=== PATIENT | female | born 1985 | race Caucasian/White ===

== ENCOUNTER → 2020-04-10 16:27 | Outpatient (CLI) | payer MEDICAID, SELFPAY ==
[2020-04-10 14:49] VITALS: BMI 38.0
[2020-04-15 03:06] LABS: Chlamydia By Nucleic Acid AMP Negative (Negative)
[2020-04-15 09:43] LABS: Gonococcus By Nucleic Acid AMP Negative (Negative)
[2020-04-15 15:58] LABS: HPV APTIMA, High Risk Negative (Negative)
== END ==
PROVIDERS: PCP Family Medicine; Referring Provider Obstetrics & Gynecology; Visit Provider Obstetrics & Gynecology
DX: Z12.4 Encounter for screening for malignant neoplasm of cervix (principal); O09.90 Supervision of high risk pregnancy, unspecified, unspecified trimester; Z3A.00 Weeks of gestation of pregnancy not specified
CPT/HCPCS: 87491; 87591; 87624; 88175; G0145

== ENCOUNTER → 2020-04-16 10:37 | Outpatient (CLI) | payer MEDICAID, SELFPAY ==
[2020-04-10 14:49] VITALS: BMI 38.0
[2020-04-16 11:35] LABS: Absolute Lymphocyte Count 2.01 X10^3/uL (0.83-4.51); Absolute Neutrophil Count 6.6 X10^3/uL (2.0-7.7); Basophil# 0.02 X10^3/uL; Basophil% 0.2 % (0-1); Eosinophil# 0.25 X10^3/uL; Eosinophils% 2.7 % (0-5); Hematocrit 35.2 % (37-47); Hemoglobin 11.6 g/dL (12.0-15.0); Lymphocyte # 2.01 X10^3/ul (4.0); Lymphocyte % 21.4 % (19-41); Mean Corpuscular Hgb 25.4 pg (27.0-32.0); Mean Platelet Vol. 10.6 fl (6.2-12.0); Monocyte# 0.46 X10^3/uL; Monocyte% 4.9 % (0-10); NRBC Flagged by Analyzer 0 % (0-5); Neutrophil # 6.62 X10^3/uL (2.7-7.7); Neutrophil % 70.4 % (47-70); Platelet Count 286 K/mm3 (150-450); RBC Distribution Width SD 49.1 fl (35.1-43.9); Red Blood Count 4.57 M/mm3 (4.2-5.4); White Blood Count 9.4 K/mm3 (4.4-11.0)
[2020-04-16 11:47] LABS: Glucose Challenge Gest 1H 50g 139 mg/dL (70-140)
[2020-04-16 12:37] LABS: HIV - WCH Non-Reactive (Nonreactive); Hepatitis B Surface Antigen Non-Reactive (Nonreactive); Hepatitis C Antibody Non-Reactive (Nonreactive); Rubella IgG 57.3 IU/mL
[2020-04-17 04:31] LABS: Rapid Plasmin Reagin (RPR) NONREACTIVE (NONREACTIVE)
== END ==
PROVIDERS: PCP Family Medicine; Referring Provider Obstetrics & Gynecology; Visit Provider Obstetrics & Gynecology
DX: Z34.81 Encounter for supervision of other normal pregnancy, first trimester (principal); Z31.5 Encounter for procreative genetic counseling
CPT/HCPCS: 36415; 82950; 85025; 86592; 86703; 86762; 86803; 86850; 86900; 86901; 87340

== ENCOUNTER → 2020-04-18 06:38 | Outpatient (CLI) | payer MEDICAID, SELFPAY ==
[2020-04-10 14:49] VITALS: BMI 38.0
[2020-04-18 08:16] LABS: Glucose GTT-Gestation. Fasting 96 mg/dL (<105)
[2020-04-18 09:13] LABS: Glucose GTT-Gestational 1 Hr 155 mg/dL (<190)
[2020-04-18 09:54] LABS: Glucose GTT-Gestational 2 Hr 103 mg/dL (<165)
[2020-04-18 11:03] LABS: Glucose GTT-Gestational 3 Hr 54 L (<145)
== END ==
PROVIDERS: Obstetrics & Gynecology; PCP Family Medicine; Referring Provider Obstetrics & Gynecology; Visit Provider Obstetrics & Gynecology
DX: O99.810 Abnormal glucose complicating pregnancy (principal); Z3A.00 Weeks of gestation of pregnancy not specified
CPT/HCPCS: 36415; 82951; 82952

== ENCOUNTER → 2020-05-09 13:12 | Outpatient (CLI) | payer MEDICAID, SELFPAY ==
[2020-05-09 09:52] VITALS: BMI 38.0
[2020-05-09 14:17] LABS: Amphetamine Urine VISTA NEGATIVE (<1000 ng/mL); Barbiturate Urine VISTA NEGATIVE (< 200 ng/mL); Benzodiazepine Urine VISTA NEGATIVE (< 200 ng/mL); Cocaine Urine VISTA NEGATIVE (< 300 ng/mL); Ecstacy Urine VISTA NEGATIVE (< 500 ng/mL); Methadone Urine VISTA NEGATIVE (< 300 ng/mL); PCP Urine VISTA NEGATIVE (< 25 ng/mL); THC Urine VISTA NEGATIVE (< 50 ng/mL); Vista UDS pH Range 6
== END ==
PROVIDERS: PCP Family Medicine; Referring Provider Obstetrics & Gynecology; Visit Provider Obstetrics & Gynecology
DX: O09.90 Supervision of high risk pregnancy, unspecified, unspecified trimester (principal); Z3A.00 Weeks of gestation of pregnancy not specified
CPT/HCPCS: 80307; 87086; 87088

== ENCOUNTER → 2020-08-07 08:22 | Outpatient (CLI) | payer MEDICAID, SELFPAY ==
[2020-07-29 09:44] VITALS: BMI 51.6
[2020-08-07 09:07] LABS: Absolute Lymphocyte Count 1.34 X10^3/uL (0.83-4.51); Absolute Neutrophil Count 6.9 X10^3/uL (2.0-7.7); Basophil# 0.01 X10^3/uL; Basophil% 0.1 % (0-1); Eosinophils% 2.2 % (0-5); Hematocrit 29.2 % (37-47); Hemoglobin 9.6 g/dL (12.0-15.0); Lymphocyte # 1.34 X10^3/ul (4.0); Lymphocyte % 14.8 % (19-41); Mean Corp Hgb Conc 32.9 g/dL (32-36); Mean Corpuscular Hgb 25.3 pg (27.0-32.0); Mean Corpuscular Volume 76.8 fL (81-99); Mean Platelet Vol. 9.8 fl (6.2-12.0); Monocyte# 0.64 X10^3/uL; NRBC Flagged by Analyzer 0 % (0-5); Neutrophil # 6.85 X10^3/uL (2.7-7.7); Neutrophil % 75.5 % (47-70); Platelet Count 250 K/mm3 (150-450); RBC Distribution Width CV 15.3 % (11.6-14.6); RBC Distribution Width SD 42.4 fl (35.1-43.9); White Blood Count 9.1 K/mm3 (4.4-11.0)
[2020-08-07 09:16] LABS: Glucose Challenge Gest 1H 50g 155 mg/dL (70-140)
== END ==
PROVIDERS: PCP Family Medicine; Referring Provider Nurse Practitioner Women's Health; Visit Provider Nurse Practitioner Women's Health
DX: Z13.1 Encounter for screening for diabetes mellitus (principal); O09.90 Supervision of high risk pregnancy, unspecified, unspecified trimester
CPT/HCPCS: 36415; 82950; 85025

== ENCOUNTER → 2020-08-12 09:36 | Outpatient (CLI) | payer MEDICAID, SELFPAY ==
[2020-07-29 09:44] VITALS: BMI 51.6
[2020-08-12 10:37] LABS: Glucose GTT-Gestation. Fasting 94 mg/dL (<105)
[2020-08-12 11:32] LABS: Glucose GTT-Gestational 1 Hr 167 mg/dL (<190)
[2020-08-12 13:02] LABS: Glucose GTT-Gestational 2 Hr 128 mg/dL (<165)
[2020-08-12 13:52] LABS: Glucose GTT-Gestational 3 Hr 56 L (<145)
== END ==
PROVIDERS: Obstetrics & Gynecology; PCP Family Medicine; Visit Provider Obstetrics & Gynecology
DX: O99.810 Abnormal glucose complicating pregnancy (principal); Z3A.00 Weeks of gestation of pregnancy not specified
CPT/HCPCS: 36415; 82951; 82952

== ENCOUNTER → 2020-09-12 10:47 | Outpatient (CLI) | payer MEDICAID, SELFPAY ==
[2020-09-12 09:37] VITALS: BMI 52.8
[2020-09-12 10:59] LABS: Absolute Lymphocyte Count 1.76 X10^3/uL (0.83-4.51); Absolute Neutrophil Count 9.9 X10^3/uL (2.0-7.7); Basophil# 0.02 X10^3/uL; Basophil% 0.2 % (0-1); Eosinophil# 0.21 X10^3/uL; Eosinophils% 1.7 % (0-5); Hematocrit 30.7 % (37-47); Hemoglobin 9.7 g/dL (12.0-15.0); Lymphocyte # 1.76 X10^3/ul (4.0); Lymphocyte % 13.9 % (19-41); Mean Corp Hgb Conc 31.6 g/dL (32-36); Mean Corpuscular Hgb 24.1 pg (27.0-32.0); Mean Corpuscular Volume 76.4 fL (81-99); Mean Platelet Vol. 9.6 fl (6.2-12.0); Monocyte# 0.72 X10^3/uL; Monocyte% 5.7 % (0-10); NRBC Flagged by Analyzer 0 % (0-5); Neutrophil # 9.86 X10^3/uL (2.7-7.7); Neutrophil % 77.9 % (47-70); Platelet Count 273 K/mm3 (150-450); RBC Distribution Width CV 15.7 % (11.6-14.6); RBC Distribution Width SD 42.8 fl (35.1-43.9); Red Blood Count 4.02 M/mm3 (4.2-5.4); White Blood Count 12.6 K/mm3 (4.4-11.0)
== END ==
PROVIDERS: Obstetrics & Gynecology; PCP Family Medicine; Referring Provider Obstetrics & Gynecology; Visit Provider Obstetrics & Gynecology
DX: O99.019 Anemia complicating pregnancy, unspecified trimester (principal); Z3A.00 Weeks of gestation of pregnancy not specified
CPT/HCPCS: 36415; 85025

== ENCOUNTER → 2020-09-15 07:39 | Outpatient (CLI) | payer MEDICAID, SELFPAY ==
[2020-09-12 09:37] VITALS: BMI 52.8
--- NOTE | 2020-09-15 07:41 | US_ITS ---
STUDY: SECOND AND THIRD TRIMESTER OBSTETRICAL ULTRASOUND REASON FOR EXAM: Female, 35 years old growth LMP: 01/28/2020 TECHNIQUE: Transabdominal. TECHNICAL QUALITY: Limited. Examination limited due to obesity. PRIOR ULTRASOUND: None. FINDINGS: There is a single intrauterine fetus. The fetus is in a cephalic presentation. There is demonstrated cardiac activity with a heart rate of 144 bpm. There is a normal amniotic fluid volume. The largest amniotic fluid pocket measures 6.4 cm. The amniotic fluid index (ARRON) is 16.7 cm. The placenta is anterior in location and is not low lying. There are Grade 2 placental changes. The cervix measures 3.7 cm in length. The adnexal regions are not visualized. BIOMETRY: BPD: 9.06 cm: 36 weeks, 5 days HC: 31.94 cm: 35 weeks, 6 days AC: 30.22 cm: 34 weeks, 1 days FL: 6.4 cm: 33 weeks, 0 days CI: 85% FL/BPD: 71% FL/HC: FL/AC: 21% HC/AC: 1.06 age by current US: 34 weeks, 4 days. PREMA by current US: 10/23/2020. Estimated weight: 2422 grams, +/- 363 grams, 91 %. Age by LMP: 33 weeks, 0 days. PREMA by LMP: 11/03/2020. ANATOMY: Limited exam to visualize the anatomical markers. US/OB Limited With Biometrics IMPRESSION: Single live uterine gestation with a mean gestational age of 34 weeks and 4 days. Electronically Signed: Gamal Madera MD at 10:54 EST , Service support ,
== END ==
PROVIDERS: PCP Family Medicine; Referring Provider Obstetrics & Gynecology; Visit Provider Obstetrics & Gynecology
DX: O09.90 Supervision of high risk pregnancy, unspecified, unspecified trimester (principal); Z3A.34 34 weeks gestation of pregnancy; O99.213 Obesity complicating pregnancy, third trimester
CPT/HCPCS: 76816

== ENCOUNTER 2020-10-03 09:14 | Outpatient (CLI) | payer MEDICAID, SELFPAY ==
[2020-10-03 08:28] VITALS: BMI 52.9
[2020-10-03 10:17] LABS: ALB/GLOB Ratio 0.5 RATIO (0.9-2.4); AST(SGOT) 46 U/L (15-37); Alanine Aminotransfer ALT/SGPT 104 U/L (13-56); Albumin, Serum 2.2 g/dL (3.2-5.0); Alkaline Phosphatase 294 U/L (45-117); Anion Gap 7 (5-15); BUN 5 mg/dL (7-18); Calcium,Total 9.5 mg/dL (8.5-10.1); Chloride 103 mmol/L (98-107); Creatinine, Serum 0.62 mg/dL (0.55-1.02); EST Glomerular Filtration Rate 116 mL/min (>60); Est Glom Filt Rate - Afr Amer 140 mL/min (>60); Globulin 4.4 g/dL (2.2-4.2); Glucose 100 mg/dL (74-106); Potassium 3.6 mmol/L (3.5-5.1); Protein, Total 6.6 g/dL (6.4-8.2); Sodium Level 137 mmol/L (136-145)
[2020-10-03 11:50] VITALS: BMI 52.9
[2020-10-03 12:03] VITALS: BP 133/69; PULSE 107; TEMP 36.7; O2SAT 97
--- NOTE | 2020-10-03 12:22 | US_ITS ---
STUDY: OBSTETRICAL ULTRASOUND - BIOPHYSICAL PROFILE REASON FOR EXAM: Female, 35 years old. Elevated liver enzymes LMP: Unknown. PRIOR ULTRASOUND: None. TECHNIQUE: Transabdominal ultrasound evaluation was performed. FINDINGS: There is a single intrauterine fetus. The fetus is in a cephalic presentation. There is demonstrated cardiac activity with a heart rate of 161 bpm. There is a normal amniotic fluid volume. The amniotic fluid index (ARRON) is 15.7 cm. The placenta is anterior in location and is not low lying. BIOPHYSICAL PROFILE: Breathing Movements (FBM): 2 Gross Body Movements (GBM): 2 Tone (FT): 2 Amniotic Fluid Volume (AFV): 2 TOTAL SCORE: US/Biophysical Prof W/O Non Stres IMPRESSION: Normal biophysical profile of 03/08. Electronically Signed: Victor Manuel Solares MD at 16:34 EST Tel , Service support ,
[2020-10-03 12:26] LABS: Absolute Lymphocyte Count 1.54 X10^3/uL (0.83-4.51); Absolute Neutrophil Count 8.8 X10^3/uL (2.0-7.7); Basophil# 0.01 X10^3/uL; Basophil% 0.1 % (0-1); Eosinophil# 0.28 X10^3/uL; Eosinophils% 2.5 % (0-5); Hematocrit 28.4 % (37-47); Hemoglobin 9.5 g/dL (12.0-15.0); Lymphocyte # 1.54 X10^3/ul (4.0); Lymphocyte % 13.6 % (19-41); Mean Corp Hgb Conc 33.5 g/dL (32-36); Mean Corpuscular Hgb 25.7 pg (27.0-32.0); Mean Corpuscular Volume 76.8 fL (81-99); Mean Platelet Vol. 9.9 fl (6.2-12.0); Monocyte# 0.57 X10^3/uL; NRBC Flagged by Analyzer 0 % (0-5); Neutrophil # 8.84 X10^3/uL (2.7-7.7); Neutrophil % 78.2 % (47-70); Platelet Count 226 K/mm3 (150-450); RBC Distribution Width CV 16.2 % (11.6-14.6); RBC Distribution Width SD 43.8 fl (35.1-43.9); White Blood Count 11.3 K/mm3 (4.4-11.0)
--- NOTE | 2020-10-03 12:27 | US_ITS ---
STUDY: SECOND AND THIRD TRIMESTER OBSTETRICAL ULTRASOUND - LIMITED REASON FOR EXAM: Female, 35 years old elevated liver enzymes LMP: 01/28/2020. PRIOR ULTRASOUND: Comparison is made with prior study dated 09/15/2020. TECHNIQUE: Transabdominal TECHNICAL QUALITY: Adequate. FINDINGS: There is a single intrauterine fetus. The fetus is in a cephalic presentation. There is demonstrated cardiac activity with a heart rate of 140 bpm. There is a normal amniotic fluid volume. The largest amniotic fluid pocket measures 5.2 cm. The amniotic fluid index (ARRON) is 13.8 cm. The placenta is anterior in location and is not low lying. There are Grade 2 placental changes. The cervix was not measured due to the head positioning. BIOMETRY: BPD: 9.7 cm: 39 weeks, 5 days HC: 34.1 cm: 39 weeks, 2 days AC: 32.9 cm: 36 weeks, 6 days FL: 7.1 cm: 36 weeks, 4 days Age by LMP: 35 weeks, 4 days. PREMA by LMP: 11/03/2020. age by prior US: 37 weeks, 1 days. PREMA by prior US: 10/23/2020. age by current US: 38 weeks, 1 days. PREMA by current US: 10/16/2020. Estimated weight: 3171 grams, +/- 463 grams, 90 percentile. US/OB Limited With Biometrics IMPRESSION: Single live intrauterine gestation with mean gestational age of 37 weeks and 1 day. The measurements obtained today fall within the normal expected range. Electronically Signed: Gamal Madera MD at 14:39 EST , Service support ,
[2020-10-03 12:30] VITALS: BP 130/73; PULSE 110
[2020-10-03 12:50] VITALS: BP 140/79; PULSE 111
[2020-10-03 12:57] LABS: Protein, Urine (Random) 9.7 mg/dL (<11.9); Protein:Creat Ratio 180 mg/g CRE (0-200)
[2020-10-03 13:03] VITALS: BP 144/79; PULSE 105
[2020-10-03 14:24] VITALS: BP 136/75; PULSE 112
[2020-10-03] MEDS: Betamethasone/Betamethasone 30 MG/5 ML Vial 12 MG IM (14:26)
--- NOTE | 2020-10-05 01:05 | OB.TRI.PN ---
Progress Notes Date of Service: 10/03/20 Progress Note: Patient presents for triage evaluation secondary to elevated liver enzymes and pruritus suspected cholestasis FHT: 140 Moderate variability reactive no decelerations category I tracing Potter: no regular Contractions Assessment and plan: Cholestasis of . Preeclampsia panel sent and BPP done for additional assessment due to cholestasis diagnosis and elevated liver enzymes. Reactive NST- already done in office today also, reassuring maternal and status patient discharged to home to follow-up twice next week for BPPs. See problem list details for additional plan information. Laboratory Studies: Laboratory Tests 10/03/20 10/03/20 10/03/20 Range/Units 12:35 12:17 09:19 WBC 11.3 H (4.4-11.0) K/mm3 RBC 3.70 L (4.2-5.4) M/mm3 Hgb 9.5 L (12.0-15.0) g/dL Hct 28.4 L (37-47) % MCV 76.8 L (81-99) fL MCH 25.7 L (27.0-32.0) pg MCHC 33.5 (32-36) g/dL RDW Std Deviation 43.8 (35.1-43.9) fl RDW Coeff of Rashaun 16.2 H (11.6-14.6) % Plt Count 226 (150-450) K/mm3 MPV 9.9 (6.2-12.0) fl Immature Gran % (Auto) 0.600 (0.0-0.9) % Neut % (Auto) 78.2 H (47-70) % Lymph % (Auto) 13.6 L (19-41) % [place] % (Auto) 5.0 (0-10) % Eos % (Auto) 2.5 (0-5) % Baso % (Auto) 0.1 (0-1) % Absolute Neuts (auto) 8.8 H (2.0-7.7) X10^3/uL Absolute Lymphs (auto) 1.54 (0.83-4.51) X10^3/uL Nucleated RBC % 0 (0-5) % Sodium (136-145) mmol/L Potassium (3.5-5.1) mmol/L Chloride (98-107) mmol/L Carbon Dioxide (21.0-32.0) mmol/L Anion Gap (5-15) BUN (7-18) mg/dL Creatinine (0.55-1.02) mg/dL Est GFR (MDRD) Af Amer (>60) mL/min Est GFR (MDRD) Non-Af (>60) mL/min BUN/Creatinine Ratio (10-20) RATIO Glucose (74-106) mg/dL Calcium (8.5-10.1) mg/dL Total Bilirubin (0.20-1.00) mg/dL AST (15-37) U/L ALT (13-56) U/L Alkaline Phosphatase (45-117) U/L Total Protein (6.4-8.2) g/dL Albumin (3.2-5.0) g/dL Globulin (2.2-4.2) g/dL Albumin/Globulin Ratio (0.9-2.4) RATIO U Random Total Protein 9.7 (<11.9) mg/dL Urine Creatinine 53.90 (NO RANGE EST.) mg/dL Protein/Creatinin Ratio 180 (0-200) mg/g CRE Miscellaneous Test 10/03/20 Range/Units 09:19 WBC (4.4-11.0) K/mm3 RBC (4.2-5.4) M/mm3 Hgb (12.0-15.0) g/dL Hct (37-47) % MCV (81-99) fL MCH (27.0-32.0) pg MCHC (32-36) g/dL RDW Std Deviation (35.1-43.9) fl RDW Coeff of Rashaun (11.6-14.6) % Plt Count (150-450) K/mm3 MPV (6.2-12.0) fl Immature Gran % (Auto) (0.0-0.9) % Neut % (Auto) (47-70) % Lymph % (Auto) (19-41) % [place] % (Auto) (0-10) % Eos % (Auto) (0-5) % Baso % (Auto) (0-1) % Absolute Neuts (auto) (2.0-7.7) X10^3/uL Absolute Lymphs (auto) (0.83-4.51) X10^3/uL Nucleated RBC % (0-5) % Sodium 137 (136-145) mmol/L Potassium 3.6 (3.5-5.1) mmol/L Chloride 103 (98-107) mmol/L Carbon Dioxide 27.0 (21.0-32.0) mmol/L Anion Gap 7 (5-15) BUN 5 L (7-18) mg/dL Creatinine 0.62 (0.55-1.02) mg/dL Est GFR (MDRD) Af Amer 140 (>60) mL/min Est GFR (MDRD) Non-Af 116 (>60) mL/min BUN/Creatinine Ratio 8.0 L (10-20) RATIO Glucose 100 (74-106) mg/dL Calcium 9.5 (8.5-10.1) mg/dL Total Bilirubin 0.50 (0.20-1.00) mg/dL AST 46 H (15-37) U/L ALT 104 H (13-56) U/L Alkaline Phosphatase 294 H (45-117) U/L Total Protein 6.6 (6.4-8.2) g/dL Albumin 2.2 L (3.2-5.0) g/dL Globulin 4.4 H (2.2-4.2) g/dL Albumin/Globulin Ratio 0.5 L (0.9-2.4) RATIO U Random Total Protein (<11.9) mg/dL Urine Creatinine (NO RANGE EST.) mg/dL Protein/Creatinin Ratio (0-200) mg/g CRE Miscellaneous Test Multi Select Codes - Urinary/Genital Urinary/Genital CPT Codes: No Charge
== END 2020-10-03 14:42 | disposition home or self-care (01) ==
LOC: PAVLAB 11:42 → WPOUT 11:46 → WP 11:47
PROVIDERS: PCP Family Medicine; Referring Provider Obstetrics & Gynecology; Visit Provider Obstetrics & Gynecology
DX: O26.613 Liver and biliary tract disorders in pregnancy, third trimester (principal); R74.8 Abnormal levels of other serum enzymes; K83.1 Obstruction of bile duct; Z3A.37 37 weeks gestation of pregnancy
CPT/HCPCS: 36415; 59025; 59050; 76816; 76819; 80053; 82570; 84156; 85025; 99218; G0378; J0702

== ENCOUNTER 2020-10-04 14:25 | Outpatient (CLI) | payer MEDICAID, SELFPAY ==
[2020-10-03 11:50] VITALS: BMI 52.9
[2020-10-04] MEDS: Betamethasone/Betamethasone 30 MG/5 ML Vial 12 MG IM (14:40)
--- NOTE | 2020-10-05 01:04 | OB.TRI.PN ---
Progress Notes Date of Service: 10/04/20 Progress Note: celestone given for prematurity and cholestasis
== END 2020-10-04 14:45 | disposition home or self-care (01) ==
LOC: WPOUT 14:30 → WP 14:30
PROVIDERS: PCP Family Medicine; Referring Provider Obstetrics & Gynecology; Visit Provider Obstetrics & Gynecology
DX: O26.619 Liver and biliary tract disorders in pregnancy, unspecified trimester (principal); K83.1 Obstruction of bile duct; Z3A.00 Weeks of gestation of pregnancy not specified; O60.00 Preterm labor without delivery, unspecified trimester
CPT/HCPCS: 96372; 99218; G0378; J0702

== ENCOUNTER → 2020-10-07 13:51 | Outpatient (CLI) | payer MEDICAID, SELFPAY ==
[2020-10-03 11:50] VITALS: BMI 52.9
--- NOTE | 2020-10-07 13:52 | US_ITS ---
STUDY: OBSTETRICAL ULTRASOUND - BIOPHYSICAL PROFILE REASON FOR EXAM: Female, 35 years old. The overall well-being. LMP: Unknown. PRIOR ULTRASOUND: 10/03/20 TECHNIQUE: Transabdominal ultrasound evaluation was performed. FINDINGS: There is a single intrauterine fetus. The fetus is in a cephalic presentation. There is demonstrated cardiac activity with a heart rate of 157 bpm. There is a normal amniotic fluid volume. The amniotic fluid index (ARRON) is 16.1 cm. The placenta is anterior in location and is not low lying. BIOPHYSICAL PROFILE: Breathing Movements (FBM): 2 Gross Body Movements (GBM): 2 Tone (FT): 2 Amniotic Fluid Volume (AFV): 2 TOTAL SCORE: US/Biophysical Prof W/O Non Stres IMPRESSION: Normal biophysical profile of 03/08. Electronically Signed: Victor Manuel Solares MD at 17:13 EST Tel , Service support ,
== END ==
PROVIDERS: PCP Family Medicine; Referring Provider Obstetrics & Gynecology; Visit Provider Obstetrics & Gynecology
DX: O26.619 Liver and biliary tract disorders in pregnancy, unspecified trimester (principal); K83.1 Obstruction of bile duct; Z3A.00 Weeks of gestation of pregnancy not specified
CPT/HCPCS: 76819

== ENCOUNTER → 2020-10-08 09:30 | Outpatient (CLI) | payer MEDICAID, SELFPAY ==
[2020-10-03 11:50] VITALS: BMI 52.9
[2020-10-08 09:59] LABS: Absolute Lymphocyte Count 1.89 X10^3/uL (0.83-4.51); Absolute Neutrophil Count 11.5 X10^3/uL (2.0-7.7); Basophil# 0.03 X10^3/uL; Basophil% 0.2 % (0-1); Eosinophil# 0.29 X10^3/uL; Hemoglobin 9.8 g/dL (12.0-15.0); Lymphocyte # 1.89 X10^3/ul (4.0); Mean Corp Hgb Conc 31.6 g/dL (32-36); Mean Corpuscular Hgb 23.8 pg (27.0-32.0); Mean Corpuscular Volume 75.4 fL (81-99); Mean Platelet Vol. 10.2 fl (6.2-12.0); Monocyte# 0.76 X10^3/uL; Monocyte% 5.2 % (0-10); NRBC Flagged by Analyzer 0 % (0-5); Neutrophil % 78.8 % (47-70); Platelet Count 328 K/mm3 (150-450); RBC Distribution Width CV 15.8 % (11.6-14.6); RBC Distribution Width SD 42.9 fl (35.1-43.9); Red Blood Count 4.11 M/mm3 (4.2-5.4); White Blood Count 14.6 K/mm3 (4.4-11.0)
[2020-10-08 10:06] LABS: Protein, Urine (Random) < 6.0 mg/dL (<11.9); Protein:Creat Ratio 255 mg/g CRE (0-200)
[2020-10-08 10:16] LABS: ALB/GLOB Ratio 0.6 RATIO (0.9-2.4); AST(SGOT) 28 U/L (15-37); Alanine Aminotransfer ALT/SGPT 98 U/L (13-56); Albumin, Serum 2.4 g/dL (3.2-5.0); Alkaline Phosphatase 242 U/L (45-117); Anion Gap 9 (5-15); BUN 5 mg/dL (7-18); BUN/Creat Ratio 7.6 RATIO (10-20); Calcium,Total 9.7 mg/dL (8.5-10.1); Chloride 102 mmol/L (98-107); Creatinine, Serum 0.66 mg/dL (0.55-1.02); EST Glomerular Filtration Rate 109 mL/min (>60); Est Glom Filt Rate - Afr Amer 132 mL/min (>60); GGTP 9 U/L (5-55); Globulin 4.3 g/dL (2.2-4.2); Glucose 107 mg/dL (74-106); Potassium 3.6 mmol/L (3.5-5.1); Protein, Total 6.7 g/dL (6.4-8.2); Sodium Level 138 mmol/L (136-145)
[2020-10-08 10:21] LABS: Internal QC Validated? YES +Cl - CLEAR BKGD; Monotest Negative (Negative)
[2020-10-09 09:49] LABS: Toxoplasma Gondii IgG < 3.0 IU/mL (0.0-7.1)
[2020-10-11 09:36] LABS: HEPATITIS B SURFACE AG Negative (Negative); HSV 1 By PCR Negative (Negative); Hepatitis A IgM Antibody Negative (Negative); Hepatitis B Core AB IgM Negative (Negative)
[2020-10-11 09:52] LABS: CMV Acute Antibody IgM < 30.0 AU/mL (0.0-29.9); CMV Antibody IgG < 0.60 U/mL (0.00-0.59); HSV 2 By PCR Negative (Negative); HSV 2 IgG < 0.91 index (0.00-0.90); Hep C Antibodies <0.1 s/co ratio (0.0-0.9); PARVOVIRUS B19 IGG 6.4 index (0.0-0.8); PARVOVIRUS B19 IGM 0.5 index (0.0-0.8); Toxoplasma Gondii IgM < 3.0 AU/mL (0.0-7.9)
== END ==
PROVIDERS: PCP Family Medicine; Referring Provider Obstetrics & Gynecology; Visit Provider Obstetrics & Gynecology
DX: R74.8 Abnormal levels of other serum enzymes (principal); L29.9 Pruritus, unspecified
CPT/HCPCS: 36415; 80053; 80074; 82570; 82977; 84156; 85025; 86308; 86644; 86645; 86695; 86696; 86747; 86777; 86778; 87529

== ENCOUNTER → 2020-10-10 10:23 | Outpatient (CLI) | payer MEDICAID, SELFPAY ==
[2020-10-03 11:50] VITALS: BMI 52.9
--- NOTE | 2020-10-10 10:25 | US_ITS ---
STUDY: OBSTETRICAL ULTRASOUND - BIOPHYSICAL PROFILE REASON FOR EXAM: Female, 35 years old BPP PRIOR ULTRASOUND: None. TECHNIQUE: Transabdominal TECHNICAL QUALITY: Adequate. FINDINGS: There is a single intrauterine fetus. The fetus is in a cephalic presentation. There is demonstrated cardiac activity with a heart rate of 164 bpm. There is a normal amniotic fluid volume. The largest amniotic fluid pocket measures 5.4 cm. The amniotic fluid index (ARRON) is 11 cm. The placenta is anterior in location and is not low lying. There are Grade 0 placental changes. Gender: Male BIOPHYSICAL PROFILE: Breathing Movements (FBM): 2 Gross Body Movements (GBM): 2 Tone (FT): 2 Amniotic Fluid Volume (AFV): 2 TOTAL SCORE: US/Biophysical Prof W/O Non Stres IMPRESSION: Normal biophysical profile of 03/08. Electronically Signed: Sandrine Tipton MD at 13:34 EST Tel , Service support ,
== END ==
PROVIDERS: PCP Family Medicine; Referring Provider Obstetrics & Gynecology; Visit Provider Obstetrics & Gynecology
DX: O09.90 Supervision of high risk pregnancy, unspecified, unspecified trimester (principal); O26.619 Liver and biliary tract disorders in pregnancy, unspecified trimester; K83.1 Obstruction of bile duct; Z3A.00 Weeks of gestation of pregnancy not specified
CPT/HCPCS: 76819; 87081

== ENCOUNTER → 2020-10-14 08:20 | Outpatient (CLI) | payer MEDICAID, SELFPAY ==
[2020-10-03 11:50] VITALS: BMI 52.9
--- NOTE | 2020-10-14 08:21 | US_ITS ---
STUDY: OBSTETRICAL ULTRASOUND - BIOPHYSICAL PROFILE REASON FOR EXAM: Female, 35 years old BPP - cholestasis LMP: 01/28/2020. PRIOR ULTRASOUND: Comparison is made with prior study from 10/10/2020. TECHNIQUE: Transabdominal TECHNICAL QUALITY: Adequate. FINDINGS: There is a single intrauterine fetus. The fetus is in a cephalic presentation. There is demonstrated cardiac activity with a heart rate of 140 bpm. There is a normal amniotic fluid volume. The largest amniotic fluid pocket measures 3.4 cm. The amniotic fluid index (ARRON) is 10.9 cm. The placenta is anterior in location and is not low lying. There are Grade 3 placental changes. BIOPHYSICAL PROFILE: Breathing Movements (FBM): 2 Gross Body Movements (GBM): 2 Tone (FT): 2 Amniotic Fluid Volume (AFV): 2 TOTAL SCORE: 8 / 8 US/Biophysical Prof W/O Non Stres IMPRESSION: Normal biophysical profile of 8/8. Electronically Signed: Gamal Madera MD at 15:42 EDT , Service support ,
== END ==
PROVIDERS: PCP Family Medicine; Referring Provider Obstetrics & Gynecology; Visit Provider Obstetrics & Gynecology
DX: O26.619 Liver and biliary tract disorders in pregnancy, unspecified trimester (principal); K83.1 Obstruction of bile duct; Z3A.00 Weeks of gestation of pregnancy not specified
CPT/HCPCS: 76819

== ENCOUNTER 2020-10-16 05:22 | Inpatient (IN) | payer MEDICAID, SELFPAY ==
[2020-09-12 09:37] VITALS: BMI 52.8
[2020-10-16] VITALS (20 sets, daily range): BP systolic 110–141; BP diastolic 62–87; PULSE 97–116; RESP 16–18; TEMP 36.1–36.5; O2SAT 94–99; BMI 52.7
[2020-10-16] MEDS: Lactated Ringers 1,000 ML 999 ML IV (05:45)
[2020-10-16 06:03] LABS: Absolute Lymphocyte Count 1.95 X10^3/uL (0.83-4.51); Absolute Neutrophil Count 10.5 X10^3/uL (2.0-7.7); Basophil# 0.03 X10^3/uL; Basophil% 0.2 % (0-1); Eosinophil# 0.31 X10^3/uL; Eosinophils% 2.2 % (0-5); Hematocrit 28.5 % (37-47); Hemoglobin 9.2 g/dL (12.0-15.0); Lymphocyte # 1.95 X10^3/ul (4.0); Lymphocyte % 14.1 % (19-41); Mean Corp Hgb Conc 32.3 g/dL (32-36); Mean Corpuscular Hgb 23.9 pg (27.0-32.0); Mean Platelet Vol. 10.6 fl (6.2-12.0); Monocyte# 0.88 X10^3/uL; Monocyte% 6.4 % (0-10); NRBC Flagged by Analyzer 0 % (0-5); Neutrophil # 10.52 X10^3/uL (2.7-7.7); Neutrophil % 76.3 % (47-70); Platelet Count 271 K/mm3 (150-450); RBC Distribution Width CV 15.9 % (11.6-14.6); RBC Distribution Width SD 42.2 fl (35.1-43.9); Red Blood Count 3.85 M/mm3 (4.2-5.4); White Blood Count 13.8 K/mm3 (4.4-11.0)
[2020-10-16] MEDS: Acetaminophen 500 MG Tablet 1000 MG PO ×3 (06:18→17:53)
[2020-10-16] MEDS: Lactated Ringers 1,000 ML 150 ML IV (06:52)
[2020-10-16] MEDS: Sodium Citrate/Citric Acid 30 ML UDC PO (07:13)
--- NOTE | 2020-10-16 07:31 | PCM.HPOB.BLA ---
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 Nl bile acids, but with elevated LFTs and significant symptom relief with ursodiol, plan delivery at 37w. (7) Elevated liver enzymes Status: Acute Comment: nl bile acids. additional labs ordered. (8) General counseling and advice for contraceptive management Status: Acute Comment: Wants BS if c section. Otherwise vasectomy (9) Generalized pruritus Status: Acute Comment: elevated CMP, nl bile acids, on actigall, reviewed FM precautions. (10) Influenza vaccination declined Status: Acute Comment: 06/03/20c (11) Obesity Status: Acute Qualifiers: Comment: 1 hour glucola 1 TM. encouraged healthy weight gain. 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 FOB- CARRIER FOR CYSTIC FIBROSIS, anatomy normal echo planned. nl growth (13) Previous section Status: Acute Comment: considering TOLAC. TOLAC calculator 32%. Would only want to TOLAC if came in advanced stages of labor. encouraged healthy weight gain. 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 Accompanied by: Allergies loperamide [From Imodium A-D] Allergy (Verified 10/10/20 09:24) Hives Medications multivitamin no.47-iron fum 27 mg-folate no.1 1 mg-dha 300 mg capsule 1 cap PO DAILY 04/10/20 [History Confirmed 10/10/20] ursodiol 500 mg tablet 500 mg PO BID #60 tab 10/03/20 [Rx Confirmed 10/10/20] Last Menstral Period: 02/04/20 Zika: Zika virus screening: Negative : No PFSH PFSH Medical History Obesity (Acute) Surgical History Previous section (Acute) History of ankle surgery (Acute) History of tonsillectomy (Acute) Family History Father Hypertension Mother Hypertension Thyroid disorder Blood clotting disorder Social History (Updated 10/10/20 @ 10:[address] Sheri Najera MD) adopted: No household members: family housing: house number of children: 1 current occupational status: unemployed pets and animals: No sexually active: Yes Smoking Status: Current every day smoker second hand exposure: Yes alcohol intake: current alcohol intake frequency: a few times a month substance use type: does not use seatbelt use: always do you feel safe at home: Yes additional social history: Rene- Loretta Clifton Pregancy History 2 Elective abortions Hx Para 1 Spontaneous abortions Hx # Term Pregnancies 1 Ectopic pregnancies Hx # Pregnancies Multiple births # of living children 1 Past Pregnancies Del. 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 Logan Delivery Date: 03/06/14 NRFHT Jacqueline Nixon HPI 36 WK OB/NST: Details: MOUSTAPHA GARCIAS is a 35 year old who presents for RLTCS and BS at 37 weeks due to cholestasis, elevated liver enzymes. OB Visit PREMA Calculator Estimated Delivery Date Method Current WG Current Estimate 11/03/20 Ultrasound #1 36w 4d Other Estimates 11/10/20 LMP (Certain) 35w 4d Expected Delivery Route/Plan RLTCS scheduled 10/27 - only wants to TOLAC if advanced cervical dilation patient counseled regarding risks/benefits of trial of labor versus repeat . ACOG/uptodate education given to patient. 32 % likelihood of success per calculator labor support person: Rene : yes PP control planned: BS if c section otherwise vasectomy Specific Issue/Plans flu vaccine: declined tdap vaccine: given rhogam: na LARC form signed: yes movement and labor precautions reviewed. Problem list reviewed and updated with the most current plan of care details and appropriate orders placed. Relevant counseling for the gestational age provided. Continue routine care and follow up unless otherwise noted in visit notes/problem list details Initial Weight: 348 lb Date EGA Weight BP Urine Prot Glucose FHR FuHt Pres Dilation Effaced St Visit Note 04/10/20 10w 3d 348 lb (+0 oz) 126/70 170 SM- CRL- SM- CRL- 3.1cm not consistent with LMP recommend changing PREMA to 11/03/20 05/09/20 14w 4d 352 lb (+4 lb) 128/70 150 SM- no vb cramping discussed lab results 06/03/20 18w 1d 355 lb (+7 lb) 104/80 Negative Negative 150 Sm- no vb cramping, has fu us with mfm next week 06/30/20 22w 0d 357 lb (+9 lb) 120/82 Negative Negative 160 SM- no vb cramping cramping 07/29/20 26w 1d 360 lb (+12 lb) 130/60 144 MH-unable to give urine spec. No VB, LOF. Good FM. Very difficult visualization of FHT with US and Dr Najera. Audible and 144. Patient/FOB heard it. Needs to schedule FU US with MFM. 08/29/20 30w 4d 371 lb (+23 lb) 129/85 145 SM- no vb lof good fm no regular ctx tdap 09/12/20 32w 4d 368 lb (+20 lb) 134/72 Negative Negative 140 SM- nst. no vb lof good fm no reuglar ctx 09/19/20 33w 4d 369 lb 6 oz (+21 lb 6 oz) 138/72 Negative Negative 140 GP - no LOF, VB, DFM, ctx. Discussed TOLAC calculator - planning RCD unless presents in advanced stage of labor. T19 signed today. 09/26/20 34w 4d 366 lb (+18 lb) 140/82 Negative Negative 140 SM- discussed tolac, only recommend if in well established spontaneous labor. 10/03/20 35w 4d 369 lb (+21 lb) 138/74 Negative Negative 140 SM- no vb lof good fm no regular ctx 10/10/20 36w 4d 367 lb 4 oz (+19 lb 4 oz) 118/70 150 37 GP - no LOF, VB, DFM, ctx. Significant relief in symptoms with actigall, but bile acids normal. LFTs still elevated. Awaiting infectious serologies. Concerned could have chloestasis that has not yet resulted in significant increase in bile acids. Will still plan for RCD at 37w. ACOG First Trimester First Trimester: Desire for , Alcohol, Tobacco Cessation, Illicit/Recreational Drug/Substance Use, Intimate Partner Violence, Barriers to care, Unstable Housing, Communication Barriers, Environmental/Work Hazards, Anticipated Course of Care, Toxoplasmosis Precations, Use of Any medications, Sexual activity, Exercise, Dental Care, Sauna/Hot tub use, Seat Belt use, Childbirth classes/Hospital facilities, , Travel, Indications for US and Screening for Aneuploidy Diagnostics Diagnostics Diagnostics Gest Glucose Tolerance MG/DL 08/12/20 Glucose 1 Hr 50 gm 155 mg/dL (70-140) H 08/07/20 Hgb 9.8 g/dL (12.0-15.0) L 10/08/20 Hct 31.0 % (37-47) L 10/08/20 Details: HIV: Urine Culture: Sequential Screen: NIPT Screen: ROS Const Reports system reviewed and no additional complaints, except as docu Eyes Reports system reviewed and no additional complaints, except as docu ENT Reports system reviewed and no additional complaints, except as docu Card Reports system reviewed and no additional complaints, except as docu Resp Reports system reviewed and no additional complaints, except as docu GI Reports system reviewed and no additional complaints, except as docu Reports system reviewed and no additional complaints, except as docu, Denies abnormal vaginal bleeding, Denies painful urination, Denies pelvic pain, Denies vaginal discharge, Denies vaginal odor, Denies vaginal itching Musc Reports system reviewed and no additional complaints, except [facility] Skin[facility]Breast Reports system reviewed and no additional complaints, except as [facility] Neuro Yes system reviewed and no additional complaints, except as [facility] Psych Reports system reviewed and no additional complaints, except as docu Endo Reports system reviewed and no additional complaints, except as docu Exam Const General: cooperative, healthy appearing, comfortable, no acute distress, well developed, well groomed Nutritional Appearance: average body habitus, well nourished Orientation: alert, awake, oriented x3 HENNV Head: normal to inspection, normocephalic, atraumatic Eyes Pupils: PERRL, accommodation normal Resp Effort & Inspection: normal respiratory effort, able to speak in complete sentences, symmetric chest movement Cardio Rate: regular rate GI Palpation: soft, no guarding, no masses, nontender Skin General: no rashes or lesions noted, elasticity normal, turgor normal Neuro General: alert, awake, oriented x3 Cranial Nerves: CN's II-XI intact bilaterally, sense of smell intact, PERRL, accommodation normal, EOM intact bilaterally Speech: speech normal Gait: normal gait Psych Appearance: grossly normal, well kempt Mental Status: mental status grossly normal Mood: congruent mood Affect: normal affect Speech and Movement: speech and movement normal Attitude: cooperative Thought Process: normal Thought Content: normal Judgment: judgment good Office Procedures OB NST Non-Stress Test Indications for Monitoring: Yes Morbid obesity, Yes other (cholestasis) Heart Rate Baseline: 150 Heart Rate Variability: moderate Movement: Present Heart Rate Accelerations: Present Decelerations: Absent Contractions: Absent Impression: Yes Reactive Non-Stress Test Assessment & Plan Problems 1. Elevated liver enzymes R74.8 nl bile acids. additional labs ordered. 2. 35 weeks gestation of Z3A.35 electronic covid test ordered 10/03/20 3. Cholestasis during in third trimester O26.613; K83.1 elevated liver enzymes, will start ursodiol, twice weekly BPPs, kick counts, deliver at 37. Nl bile acids, but with elevated LFTs and significant symptom relief with ursodiol, plan delivery at 37w. 4. Generalized pruritus L29.9 elevated CMP, nl bile acids, on actigall, reviewed FM precautions. 5. Anemia affecting in third trimester O99.013 iron added; repeat CBC in 4 weeks 6. General counseling and advice for contraceptive management Z30.09 Wants BS if c section. Otherwise vasectomy 7. Influenza vaccination declined Z28.21 20sc 8. 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 Abnormal glucose affecting O99.810 nl 3 hour gtt consider 3 hr gtt at 26-28 weeks; abnormal 1gct at 27 weeks- normal 3gtt 10. 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 FOB- CARRIER FOR CYSTIC FIBROSIS, anatomy normal echo planned. nl growth 11. Supervision of high risk , antepartum O09.90 PRR PREMA 11/03/20 boy Simone PC: Sailor Lagunas) Spouse: Rene 12. Multigravida of advanced maternal age in third trimester O09.523 13. Class 3 severe obesity due to excess calories without serious comorbidity with body mass index (BMI) of 50.0 to 59.9 in adult E66.01 1 hour glucola 1 TM. encouraged healthy weight gain. 14. Previous section Z98.891 encouraged healthy weight gain. RLTCS BS scheduled 10/27 @ 12 Orders Orders: OB NST Today O09.90 POC Urinalysis 2 Dip (Clinic) Today Culture, Group B Streptococcus Today O09.90 Coding Level of Care Code Off vis,est,level 3 Diagnoses Elevated liver enzymes R74.8 35 weeks gestation of Z3A.35 Cholestasis during in third trimester O26.613; K83.1 ??Trimester: third trimester Generalized pruritus L29.9 Anemia affecting in third trimester O99.013 ??Trimester: third trimester General counseling and advice for contraceptive management Z30.09 Influenza vaccination declined Z28.21 Abnormal laboratory test result R89.9 Abnormal glucose affecting O99.810 36 weeks gestation of Z3A.36 ??Weeks of gestation: 36 weeks Supervision of high risk , antepartum O09.90 Multigravida of advanced maternal age in third trimester O09.523 ??Trimester: third trimester Class 3 severe obesity due to excess calories without serious comorbidity with body mass index (BMI) of 50.0 to 59.9 in adult E66.01 ??Obesity type: due to excess calories ??Obesity classification: adult class 3 (BMI >= 40) ??Serious obesity comorbidity presence: without serious comorbidity ??Body mass index: BMI 50.0-59.9 Previous section Z98.891 Additional Codes Non-Stress Test (67331) .HP
--- NOTE | 2020-10-16 07:39 | OP.PCM_ITS ---
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 Nl bile acids, but with elevated LFTs and significant symptom relief with ursodiol, plan delivery at 37w. (7) Elevated liver enzymes Status: Acute Comment: nl bile acids. additional labs ordered. (8) General counseling and advice for contraceptive management Status: Acute Comment: Wants BS if c section. Otherwise vasectomy (9) Generalized pruritus Status: Acute Comment: elevated CMP, nl bile acids, on actigall, reviewed FM precautions. (10) Influenza vaccination declined Status: Acute Comment: 06/03/20c (11) Obesity Status: Acute Qualifiers: Comment: 1 hour glucola 1 TM. encouraged healthy weight gain. 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 FOB- CARRIER FOR CYSTIC FIBROSIS, anatomy normal echo planned. nl growth (13) Previous section Status: Acute Comment: considering TOLAC. TOLAC calculator 32%. Would only want to TOLAC if came in advanced stages of labor. encouraged healthy weight gain. RLTCS BS scheduled 10/27 @ 12 (14) Supervision of high risk , antepartum Status: Acute Comment: PRR PREMA 11/03/20 p[facility]: Sailor Lagunas) Spouse: Rene Delivery Classification: Scheduled Final PREMA: 11/04/20 Gestational age: 37 Weeks and 2 Days senior systems software engineer: Sara Forrester Type of Anesthesia:: Spinal Special Medications: none Implants Used: none Date of Procedure: 10/16/20 Pre-Operative Diagnosis: The liver enzymes and cholestasis. Morbid obesity. Previous . Desired sterilization Post-Operative Diagnosis: same Indications for : Repeat Elective , Desires elective sterilization Description of Procedure: The patient is a 35-year-old G2, P1 at 37 weeks 2 days diagnosed with elevated liver enzymes and cholestasis presented for [repeat] . Spinal anesthesia was placed without difficulty. Hirsch catheter was placed. The patient was placed in the dorsal supine position with leftward tilt. Patient was prepped and draped in the normal sterile fashion. Pfannenstiel skin incision was made with the scalpel and carried through to the underlying layer of fascia with the scalpel. Fascia was nicked in the midline and the incision extended laterally. The rectus bellies were dissected off superiorly and inferiorly with out complication both sharply and bluntly. The peritoneum was entered digitally. The incision was stretched and a low transverse uterine incision was made with the scalpel. It was attempted to deliver the infant but due to the thickened abdominal wall it was difficult to obtain the appropriate pressure and therefore a vacuum was applied. With the aid of the vacuum the 's head was delivered atraumatically followed by the anterior and posterior shoulders without complication the rest of the delivered. The cord was clamped and cut and the infant was handed off to awaiting nurse. The placenta was delivered spontaneously immediately following and was noted to be intact and have a three-vessel cord. The uterus was exteriorized cleared of all clots and debris, and the incision was closed in a single layer closure using #1 Monocryl. The ovaries and fallopian tubes were noted to be within normal limits. The uterus was returned to the maternal abdomen and gutters were cleared of all clots and debris. The peritoneum was closed with 3-0 Monocryl in a running fashion. Gloves were changed prior to fascial closure. Fascia was closed with 0 PDS in a running fashion. Subcutaneous tissue was copiously irrigated and the skin was closed with 3-0 Monocryl in a subcuticular fashion. Mepilex dressing was applied without complication. Patient was taken to recovery in stable condition. Amniotic Membrane Rupture Type: Artificial Amniotic Fluid Description: Clear Placenta Disposition: [facility] Esitmated Blood Loss (ml): 700 Infant Gender: Male Delayed cord clamping: Yes Antibiotic Given: Ancef 3 grams IV x1 Pt instructed on risks of surgery: Bleeding, Anesthesia Risks, Infection, Need for Future C-Sections, Permanency, Injury to surrounding structure(s) including bowel and bladder Complications: None - Admit VTE Documentation VTE Present on Admission: No VTE Mechan Device Prophylaxis: SCD's Multi Select Codes - Urinary/Genital Urinary/Genital CPT Codes: 34408 C/S+TL - bilateral salpingectomy, 55486 Delivery [facility]
--- NOTE | 2020-10-16 07:59 | FALS_PTH ---
PATIENT: MOUSTAPHA GARCIAS LOC: WP U#:[id number] AGE/SX: 35/F ROOM: WP004 RE10/16/[address]: Dr. Ida De La Rosa MD : 1985 BED: 1 DIS: 10/18/2020 SPEC #: [id number] RECD: 10/16/20 11:03 STATUS: MÓNICA REIsabela #: [id number] MASSIEL: 10/16/20 07:[address]: Ida De La Rosa DEPT: SURGICAL PATHOLOGY RECD BY: Linda Oliver ENTERED: 10/16/20 11:04 SP TYPE: FALL TUBES OTHR DR: Dr. Bashir Najera MD Tissues: Fallopian tube Procedures: Surgery Specimen Level IV HEADER OPERATION: Tubal ligation PRE-OP DIAGNOSIS: Sterilization TISSUE SUBMITTED: Fallopian tubes, suture in right tube MICROSCOPIC DIAGNOSIS Right fallopian tube, salpingectomy: Benign paratubal cysts. Left fallopian tube, salpingectomy: Benign paratubal cysts. AM:evelio 10/17/2020 MICROSCOPIC DESCRIPTION Slides are reviewed. GROSS DESCRIPTION Received in fixative is one container labeled with the patient's name and designated bilateral fallopian tubes, one with suture, one without. The specimen consists of two fallopian tubes with an average length of 7 cm and has an average diameter of 0.8 cm. Both fallopian tubes have normal fimbriated ends. The soft tissue adjacent to the fimbrial ends contain smooth, glistening cysts averaging 1.5 cm and containing clear fluid. Manufacturing Sales Representative sections are submitted in two cassettes as follows: 1 - right fallopian tube with suture, 2 - left fallopian tube without suture. / AM:evelio 10/16/20 TC:5 CPT: 00585 x2
[2020-10-16] MEDS: Oxytocin 30 units/NS 500 ml 30 UNITS/500 ML IV.SOLN 167 UNITS IV (09:18)
[2020-10-16] MEDS: Ketorolac 30 MG/ML Syringe IV ×3 (09:54→22:04)
[2020-10-16 10:24] LABS: Pathology Specimen OB SEE PATHOLOGY REPORT
--- NOTE | 2020-10-16 10:26 | DCINST_ITS ---
Discharge Diet: No Restrictions Discharge Activity: May Not Drive - for 2 weeks, May not drive while taking narcotic pain medications., May Shower, May Take a Tub Bath - in 7 days May resume sexual activity in: 4-6 weeks Lifting Restrictions: 20 pounds Additional Activity Instructions:: Nothing in the vagina for 4-6 weeks. You may return to work/school in 6 weeks. Call your doctor if your incision/area has: Continuous Slow Oozing, Sudden Increased Bleeding, Increased Pain/ Swelling, Increased Redness, Foul Smelling Discharge Call your doctor if you observe: Fever of 101 or Higher, Using more than one pad per hour - for 2 hours Suture Line Care: Avoid Pulling/Pushing, Avoid Pinching/Bending Cleanse incision/area with: Keep Dressing Clean & Dry Additional Instructions: If you experience any of the following, contact your healthcare provider. * Bleeding that soaks a pad every hour for 2 hours * Fever 100.4 or higher * Unrelieved incision or abdominal pain * Swelling, redness, discharge or bleeding from your incision or episiotomy site * Your incision begins to separate * Problems urinating (including inability to urinate or burning while urinating). * Visual changes * Severe headache * Flu-like symptoms * Pain or redness in one of both of your breasts * Pain, warmth, tenderness or swelling in your legs, especially the calf area * Frequent nausea and vomiting * Symptoms of depression or anxiety If you experience any of the following, call 911 or go to the nearest Emergency Room. * Chest pain * Problems breathing * Seizure activity * Partial or complete paralysis of a body part, slurred speech, weakness or drooping of the face, or a sudden inability to walk or hold your balance Allergies/Adverse Reactions: Allergies loperamide [From Imodium A-D] Allergy (Verified 10/16/20 06:53) Hives Medications to take at Discharge multivitamin no.47-iron fum 27 mg-folate no.1 1 mg-dha 300 mg capsule 1 cap PO DAILY 04/10/20 Naproxen [Naprosyn] 250 - 500 mg PO Q8H PRN PRN #30 tablet 10/16/20 Oxycodone HCl/Acetaminophen [Percocet 5-325] 1 - 2 tablet PO Q6H PRN PRN 7 Days #15 tablet 10/16/20 Ursodiol 500 mg PO BID 10/16/20 The following prescriptions were given: Naproxen [Naprosyn] 250 - 500 mg PO Q8H PRN PRN #30 tablet PRN Reason: MILD PAIN Transmission Status: Pending to [facility] Oxycodone HCl/Acetaminophen [Percocet 5-325] 1 - 2 tablet PO Q6H PRN PRN 7 Days #15 tablet PRN Reason: Pain Transmission Status: Sent to [facility] Follow-Up: Call to make an appointment with your doctor for an incision check in 1-2 weeks. You will also need a 6 week post- follow up appointment. Test results from this visit will be discussed in further detail at your follow- up appointment, if applicable. Please Follow Up With: Ida De La Rosa MD - Call to make an appointment for an incision check in 1-2 [phone] When: You will need a post- check in 6 weeks. Primary Care Physician: Bashir Najera MD [Primary Care Provider] -
--- NOTE | 2020-10-16 11:31 | NURSING ---
Ligasure lot #: [id number] Expiration: 07/21/2025
[2020-10-16] MEDS: Senna/Docusate Sodium 1 Tablet PO (12:30)
[2020-10-16] MEDS: 0.9% Saline Lock 10 ML Syringe IV ×3 (13:35→22:08)
--- NOTE | 2020-10-16 20:49 | NURSING ---
pt up to bathroom and attempted to void but unable. Informed pt that she has an hour til it has been 6 hours since lundberg cather out and will have to straight cath. Pt verbalizes understanding. Will continue to drink water and attempt to void.
--- NOTE | 2020-10-16 21:42 | NURSING ---
At 0 patient up in room getting ready to feed . Patient states that she sat for 20 minutes and tried to void but unable. Instructed infant to first feed infant and try to void, if unable to void will need to straight cath. At 2143 patient called and said she is going to wait to feed , ready for straight cath.
[2020-10-16] MEDS: Enoxaparin 40 MG/0.4 ML Syringe SC (22:04)
[2020-10-17] VITALS (8 sets, daily range): BP systolic 125–136; BP diastolic 64–74; PULSE 100–103; RESP 16–18; TEMP 36.4–36.6; O2SAT 97–100
[2020-10-17] MEDS: Acetaminophen 500 MG Tablet 1000 MG PO ×4 (00:39→19:08)
[2020-10-17] MEDS: Ketorolac 30 MG/ML Syringe IV (03:37)
[2020-10-17] MEDS: 0.9% Saline Lock 10 ML Syringe IV (03:37)
[2020-10-17 04:37] LABS: Hematocrit 22.8 % (37-47); Hemoglobin 7.4 g/dL (12.0-15.0); Mean Corp Hgb Conc 32.5 g/dL (32-36); Mean Corpuscular Hgb 24.1 pg (27.0-32.0); Mean Corpuscular Volume 74.3 fL (81-99); Mean Platelet Vol. 10.2 fl (6.2-12.0); Platelet Count 221 K/mm3 (150-450); RBC Distribution Width CV 15.7 % (11.6-14.6); RBC Distribution Width SD 42.3 fl (35.1-43.9); Red Blood Count 3.07 M/mm3 (4.2-5.4); White Blood Count 14.3 K/mm3 (4.4-11.0)
[2020-10-17] MEDS: Naproxen 250 MG Tablet 500 MG PO ×2 (09:32→17:43)
[2020-10-17] MEDS: Enoxaparin 40 MG/0.4 ML Syringe SC ×2 (09:32→22:26)
[2020-10-17] MEDS: Senna/Docusate Sodium 1 Tablet PO (09:33)
--- NOTE | 2020-10-17 15:18 | NURSING ---
Received report from Marsha Prather RN. I will assume care of patient at this time.
--- NOTE | 2020-10-17 16:00 | CASEMGMT ---
Social Work Brief Assessment Labor and Delivery Unit Patient Address:[facility] [address], [place] [address] Phone number: [phone] Date of Referral/Notification: 10.17.2020 Time of Referral: 829 Referred By: verbal notification by nursing Date of Intervention: 10.17.2020 Time of Intervention: 1600 Reason for Referral: Maternal history of anxiety Informant: Medical record and mother of baby (MOB) Darlene Jean Baptiste; father of baby (FOB) Rene Mercer present for part of conversation. History: MOB is a 35 year old female, involved with the FOB for the last 6 years. MOB is G2, P1 to 2 after delivering baby boy, Frankie Mercer, n 3.. Frankie is the first child for MOB and FOB together, though FOB has been in MOB's oldest child's life since the child was 6 months old. Oldest child is a daughter, Sailor Jean Baptiste, born on 03.06.2014. care with Frankie started in the first trimester and delivered at 37 weeks gestation. Frankie weighed 8 pounds 8 ounces a , Apgars 7 and 9 at 1 and 5 minutes of life. MOB does not work outside of the home currently, and FOB is fulltime employed at [employer]. MOB is able to read, write, and understand what is read. Reports to have a bachelors degree in psychology. MOB denies any history of substance use issues, and drug screen negative on 05.09.2020. Positive for tobacco use. MOB denies any formal diagnosis of depression or anxiety, but admits to some depression during this which was unmanned but accepted. MOB reports stress was present, due to FOB not really wanting children, though FOB accepting and supportive of the baby now. Denies any history of suicidal or homicidal ideation, intent, planning, or action. MOB's mother with history of anxiety. Assessment: Met with MOB and FOB together and then alone with the MOB. During time that that FOB was present, he was interactive with the baby and engaged in conversation, asking questions. FOB tended to use humor when mood and anxiety disorders discussed, which this documentation writer observed MOB interject and tell FOB that this is a serious matter and can happen to anyone. Educated both to risk factors, importance of seeking help/support, as well as reinforcing that non one is to blame if PPD or PPA surface. FOB asked appropriate questions related to this subject matter. FOB was also attentive to the baby, handled baby appropriately and gently. During time alone with the MOB an [place] [facility] Depression Screen was completed with a score of 10 (refer to attached link), which is indicative of possible depression present. Reviewed with MOB. MOB able to identify support system from family and from the FOB, as well as understanding of importance to talk with health care providers. MOB reports to feel a connection to the baby at this time and is looking forward to going home. Reports to have needed supplies for the baby. Active with [employer] for medical, breast feeding the baby and plans to apply for [facility]. [facility] applications give as well as [facility] resource packet and packet on mood and anxiety disorders. MOB denies any history of abuse or domestic violence in this relationship with the FOB. Plan: MOB and baby to home when ready for discharge. Resources for home going provided, and MOB agrees to talk to health care providers if symptoms of depression/anxiety change/worsen/become distressing. FOB will be home through the weekend to help with transition home. No further needs requested or indicated. -RICK Velez, LIAN *Information documented in this assessment generated with [employer]*
[2020-10-18] MEDS: Naproxen 250 MG Tablet 500 MG PO ×2 (00:42→09:27)
[2020-10-18] MEDS: Acetaminophen 500 MG Tablet 1000 MG PO ×2 (00:42→06:37)
--- NOTE | 2020-10-18 01:25 | PN.OBGYN_ITS ---
Patient Problems: Active and Suspected Problems (Last Updated 10/16/20 @ 13:26 by Milagros Salinas) Elevated liver enzymes (Acute) nl bile acids. additional labs ordered. Generalized pruritus (Acute) elevated CMP, nl bile acids, on actigall, reviewed FM precautions. Anemia affecting (Acute) iron added; repeat CBC in 4 weeks Influenza vaccination declined (Acute) 20sc Subjective: late entry- patient seen 10/17 at 715am Patient doing well without complaints. Tolerating PO. Ambulating and voiding without difficulty. feeding well. Denies chest pain, shortness of breath, calf pain/swelling, fevers, chills, lightheadedness. - Physical Exam Vitals/I&O's: Vital Signs Temp Pulse Resp BP Pulse Ox 97.8 F 100 18 130/74 H 98 10/17/20 19:52 10/17/20 19:52 10/17/20 19:52 10/17/20 19:52 10/17/20 08:53 Oxygen Delivery Method Room Air Weight: 367 lb 6.4 oz Body Mass Index (BMI) 52.7 Intake and Output for Last 24 Hours 10/16/20 10/17/20 10/18/20 23:59 23:59 23:59 Intake Total 4300 / 4300 Output Total 1400 / 1400 250 / 250 Balance 2900 / 2900 -250 / -250 General: Alert, Oriented x3 Lungs: Clear to auscultation Cardiovascular: Regular rate Abdomen: Soft, Non Tender Microbiology Past 72 Hours 10/16/20 05:40 Mucosa - Nasopharyngeal SARS-CoV-2 Antigen (Rapid) - Final Laboratory Results 10/17/20 04:30: WBC 14.3 H, RBC 3.07 L, Hgb 7.4 L, Hct 22.8 L, MCV 74.3 L, MCH 24.1 L, MCHC 32.5, RDW Std Deviation 42.3, RDW Coeff of Rsahaun 15.7 H, Plt Count 221, MPV 10.2 Current Medications Acetaminophen (Acetaminophen 500 Mg Tablet) 1,000 mg PO Q6 CYNDIE Last Admin: 10/18/20 00:42 Dose: 1,000 mg Documented by: Bisacodyl (Bisacodyl 10 Mg Suppository) 10 mg RC UD PRN PRN Reason: If no BM Enoxaparin Sodium (Enoxaparin 40 Mg/0.4 Ml Syringe) 40 mg SC BID [facility] Last Admin: 10/17/20 22:26 Dose: 40 mg Documented by: Hydrocortisone (Hydrocortisone 2.5% Crm) 1 applic TOPICAL TID PRN PRN; Protocol PRN Reason: Discomfort Methylergonovine Maleate (Methylergonovine 0.2 Mg/Ml Ampul) 0.2 mg IM X1 PRN PRN Reason: Uterine Atony Naloxone HCl (Naloxone 0.4 Mg/Ml Syringe) 0.02 mg IV Q1M PRN PRN Reason: RR <10 and pt unresponsive Naproxen (Naproxen 250 Mg Tablet) 500 mg PO Q8H [facility] Last Admin: 10/18/20 00:42 Dose: 500 mg Documented by: Ondansetron HCl (Ondansetron 4 Mg/2 Ml Vial) 4 mg IV Q4H PRN PRN PRN Reason: Nausea Oxycodone HCl (Oxycodone 5 Mg Tablet) 5 - 10 mg PO Q4H PRN PRN PRN Reason: Pain Score 4-10 Prochlorperazine Edisylate (Prochlorperazine 10 Mg/2 Ml Vial) 10 mg IV Q6H PRN PRN PRN Reason: NAUSEA Senna/Docusate Sodium (Senna/Docusate Sodium 1 Tablet) 0 tablet PO DAILY [facility] Last Admin: 10/17/20 09:33 Dose: 1 tablet Documented by: Simethicone (Simethicone 80 Mg Tablet) 80 mg PO PCHS PRN PRN Reason: Indigestion/stomach pain Last Admin: 10/17/20 01:27 Dose: 80 mg Documented by: Sodium Chloride (0.9% Saline Lock 10 Ml Syringe) 5 - 15 ml IV UD PRN PRN Reason: SALINE FLUSH Last Admin: 10/17/20 03:37 Dose: 10 ml Documented by: Medical Necessity - Tobacco Use Smoking Status: Heavy Smoker (>10/day) Assessment/Plan All Active Problems (Last Updated 10/16/20 @ 13:26 by Milagros Salinas) Elevated liver enzymes (Acute) Generalized pruritus (Acute) Anemia affecting (Acute) Influenza vaccination declined (Acute) 35 weeks gestation of (Resolved) AMA (advanced maternal age) multigravida 35+ (Resolved) Abnormal glucose affecting (Resolved) Abnormal laboratory test result (Resolved) Cholestasis during (Resolved) General counseling and advice for contraceptive management (Resolved) Obesity (Resolved) (Resolved) Previous section (Resolved) Supervision of high risk , antepartum (Resolved) s/p LTCS PPD # 1 1. routine post care 2. breast feeding- support given 3. rh positive 4. rubella immune
[2020-10-18 01:57] VITALS: BP 121/79; PULSE 90; RESP 18; TEMP 36.6
--- NOTE | 2020-10-18 05:50 | PN.OBGYN_ITS ---
Patient Problems: Active and Suspected Problems (Last Updated 10/16/20 @ 13:26 by Milagros Salinas) Elevated liver enzymes (Acute) nl bile acids. additional labs ordered. Generalized pruritus (Acute) elevated CMP, nl bile acids, on actigall, reviewed FM precautions. Anemia affecting (Acute) iron added; repeat CBC in 4 weeks Influenza vaccination declined (Acute) 20sc Subjective: Patient doing well without complaints. Tolerating PO. Ambulating and voiding without difficulty. feeding well. Denies chest pain, shortness of breath, calf pain/swelling, fevers, chills, lightheadedness. - Physical Exam Vitals/I&O's: Vital Signs Temp Pulse Resp BP Pulse Ox 97.9 F 90 18 121/79 H 98 10/18/20 01:57 10/18/20 01:57 10/18/20 01:57 10/18/20 01:57 10/17/20 08:53 Oxygen Delivery Method Room Air Weight: 367 lb 6.4 oz Body Mass Index (BMI) 52.7 Intake and Output for Last 24 Hours 10/16/20 10/17/20 10/18/20 23:59 23:59 23:59 Intake Total 4300 / 4300 Output Total 1400 / 1400 250 / 250 Balance 2900 / 2900 -250 / -250 General: Alert, Oriented x3 Microbiology Past 72 Hours 10/16/20 05:40 Mucosa - Nasopharyngeal SARS-CoV-2 Antigen (Rapid) - Final Current Medications Acetaminophen (Acetaminophen 500 Mg Tablet) 1,000 mg PO Q6 [facility] Last Admin: 10/18/20 00:42 Dose: 1,000 mg Documented by: Bisacodyl (Bisacodyl 10 Mg Suppository) 10 mg RC UD PRN PRN Reason: If no BM Enoxaparin Sodium (Enoxaparin 40 Mg/0.4 Ml Syringe) 40 mg SC BID [facility] Last Admin: 10/17/20 22:26 Dose: 40 mg Documented by: Hydrocortisone (Hydrocortisone 2.5% Crm) 1 applic TOPICAL TID PRN PRN; Protocol PRN Reason: Discomfort Methylergonovine Maleate (Methylergonovine 0.2 Mg/Ml Ampul) 0.2 mg IM X1 PRN PRN Reason: Uterine Atony Naloxone HCl (Naloxone 0.4 Mg/Ml Syringe) 0.02 mg IV Q1M PRN PRN Reason: RR <10 and pt unresponsive Naproxen (Naproxen 250 Mg Tablet) 500 mg PO Q8H [facility] Last Admin: 10/18/20 00:42 Dose: 500 mg Documented by: Ondansetron HCl (Ondansetron 4 Mg/2 Ml Vial) 4 mg IV Q4H PRN PRN PRN Reason: Nausea Oxycodone HCl (Oxycodone 5 Mg Tablet) 5 - 10 mg PO Q4H PRN PRN PRN Reason: Pain Score 4-10 Prochlorperazine Edisylate (Prochlorperazine 10 Mg/2 Ml Vial) 10 mg IV Q6H PRN PRN PRN Reason: NAUSEA Senna/Docusate Sodium (Senna/Docusate Sodium 1 Tablet) 0 tablet PO DAILY [facility] Last Admin: 10/17/20 09:33 Dose: 1 tablet Documented by: Simethicone (Simethicone 80 Mg Tablet) 80 mg PO PCHS PRN PRN Reason: Indigestion/stomach pain Last Admin: 10/17/20 01:27 Dose: 80 mg Documented by: Sodium Chloride (0.9% Saline Lock 10 Ml Syringe) 5 - 15 ml IV UD PRN PRN Reason: SALINE FLUSH Last Admin: 10/17/20 03:37 Dose: 10 ml Documented by: Medical Necessity - Tobacco Use Smoking Status: Heavy Smoker (>10/day) Assessment/Plan All Active Problems (Last Updated 10/16/20 @ 13:26 by Milagros Salinas) Elevated liver enzymes (Acute) Generalized pruritus (Acute) Anemia affecting (Acute) Influenza vaccination declined (Acute) 35 weeks gestation of (Resolved) AMA (advanced maternal age) multigravida 35+ (Resolved) Abnormal glucose affecting (Resolved) Abnormal laboratory test result (Resolved) Cholestasis during (Resolved) General counseling and advice for contraceptive management (Resolved) Obesity (Resolved) (Resolved) Previous section (Resolved) Supervision of high risk , antepartum (Resolved) s/p LTCS PPD # 2 1. routine post care 2. breast feeding- support given 3. rh positive 4. rubella immune
[2020-10-18 08:25] VITALS: BP 129/72; PULSE 96; RESP 18; TEMP 36.6; O2SAT 96
[2020-10-18] MEDS: Senna/Docusate Sodium 1 Tablet PO (09:25)
[2020-10-18] MEDS: Enoxaparin 40 MG/0.4 ML Syringe SC (09:27)
[2020-10-18 12:18] VITALS: BP 135/79; PULSE 99; RESP 20; TEMP 36.4; O2SAT 97
== END 2020-10-18 12:50 | disposition home or self-care (01) | DRG 539 ==
PROVIDERS: Obstetrics & Gynecology; Admitting Provider Obstetrics & Gynecology; PCP Family Medicine; Referring Provider Obstetrics & Gynecology; Visit Provider Obstetrics & Gynecology
PROC: 10D00Z1 Extraction of Products of Conception, Low, Open Approach (ICD-10-PCS; CPT 59514; principal; 2020-10-16 07:15)
DX: O26.62 Liver and biliary tract disorders in childbirth (principal); K83.1 Obstruction of bile duct; O99.214 Obesity complicating childbirth; E66.01 Morbid (severe) obesity due to excess calories; O34.219 Maternal care for unspecified type scar from previous cesarean delivery; Z30.2 Encounter for sterilization; Z14.1 Cystic fibrosis carrier; Z28.21 Immunization not carried out because of patient refusal; Z37.0 Single live birth; O99.02 Anemia complicating childbirth; D64.9 Anemia, unspecified; F17.210 Nicotine dependence, cigarettes, uncomplicated; O99.334 Smoking (tobacco) complicating childbirth; Z3A.37 37 weeks gestation of pregnancy
CPT/HCPCS: 76819; 85025; 85027; 86850; 86900; 86901; 87426; 88302; 88305; 99218; 99251; J7120; A4216; G0378; G0463; J2405

== ENCOUNTER → 2020-11-27 10:42 | Outpatient (CLI) | payer MEDICAID, SELFPAY ==
[2020-11-27 09:54] VITALS: BMI 52.7
[2020-11-27 11:26] LABS: ALB/GLOB Ratio 0.9 RATIO (0.9-2.4); AST(SGOT) 15 U/L (15-37); Alanine Aminotransfer ALT/SGPT 28 U/L (13-56); Albumin, Serum 3.6 g/dL (3.2-5.0); Alkaline Phosphatase 182 U/L (45-117); Anion Gap 4 (5-15); BUN 14 mg/dL (7-18); BUN/Creat Ratio 19.2 RATIO (10-20); Calcium,Total 9.4 mg/dL (8.5-10.1); Chloride 106 mmol/L (98-107); Creatinine, Serum 0.73 mg/dL (0.55-1.02); EST Glomerular Filtration Rate 97 mL/min (>60); Est Glom Filt Rate - Afr Amer 117 mL/min (>60); Globulin 3.9 g/dL (2.2-4.2); Glucose 93 mg/dL (74-106); Potassium 4.3 mmol/L (3.5-5.1); Protein, Total 7.5 g/dL (6.4-8.2); Sodium Level 138 mmol/L (136-145); T4 Free Direct 1.09 ng/dL (0.76-1.46); Thyroid Stim Hormone (TSH) 1.66 uIU/mL (0.358-3.74)
== END ==
PROVIDERS: PCP Family Medicine; Referring Provider Obstetrics & Gynecology; Visit Provider Obstetrics & Gynecology
DX: E01.0 Iodine-deficiency related diffuse (endemic) goiter (principal)
CPT/HCPCS: 36415; 80053; 84439; 84443

== ENCOUNTER → 2022-12-09 | Outpatient (CLI) | payer OTHER, MEDICAID, SELFPAY ==
[2022-12-09 18:10] LABS: Absolute Lymphocyte Count 2.01 X10^3/uL (0.83-4.51); Absolute Neutrophil Count 5.3 X10^3/uL (2.0-7.7); Basophil# 0.04 X10^3/uL; Basophil% 0.5 % (0-1); Eosinophil# 0.22 X10^3/uL; Eosinophils% 2.7 % (0-5); Hematocrit 30.8 % (37-47); Hemoglobin 9.1 g/dL (12.0-15.0); Lymphocyte # 2.01 X10^3/ul (0.83-4.51); Lymphocyte % 24.7 % (19-41); Mean Corp Hgb Conc 29.5 g/dL (32-36); Mean Corpuscular Hgb 18.6 pg (27.0-32.0); Mean Platelet Vol. 9.9 fl (6.2-12.0); Monocyte% 6.2 % (0-10); NRBC Flagged by Analyzer 0 % (0-5); Neutrophil # 5.33 X10^3/uL (2.7-7.7); Neutrophil % 65.5 % (47-70); Platelet Count 350 K/mm3 (150-450); RBC Distribution Width CV 18.7 % (11.6-14.6); RBC Distribution Width SD 40.8 fl (35.1-43.9); Red Blood Count 4.89 M/mm3 (4.2-5.4); White Blood Count 8.1 K/mm3 (4.4-11.0)
[2022-12-09 19:04] LABS: ALB/GLOB Ratio 1.1 RATIO (0.9-2.4); AST(SGOT) 19 U/L (15-37); Alanine Aminotransfer ALT/SGPT 26 U/L (13-56); Albumin, Serum 3.7 g/dL (3.2-5.0); Alkaline Phosphatase 120 U/L (45-117); Anion Gap 8 (5-15); BUN 12 mg/dL (7-18); Chloride 105 mmol/L (98-107); Cholesterol 164 mg/dL (200); EST Glomerular Filtration Rate 99 mL/min (>60); Est Glom Filt Rate - Afr Amer 120 mL/min (>60); Globulin 3.5 g/dL (2.2-4.2); Glucose 88 mg/dL (74-106); High Density Lipoprotein 54 mg/dL; Protein, Total 7.2 g/dL (6.4-8.2); Sodium Level 137 mmol/L (136-145); Thyroid Stim Hormone (TSH) 1.98 uIU/mL (0.358-3.74); Triglycerides 108 mg/dL; Very Low Density Lipoprotein 22 mg/dL (5-40)
[2022-12-09 19:17] LABS: Hemoglobin A1c 5.1 % (3.8-5.6)
== END | disposition home or self-care (01) ==
LOC: MFPLAB 15:18
PROVIDERS: PCP Family Medicine; Visit Provider Family Medicine
DX: Z00.00 Encounter for general adult medical examination without abnormal findings (principal); Z13.0 Encounter for screening for diseases of the blood and blood-forming organs and certain disorders involving the immune mechanism; Z13.1 Encounter for screening for diabetes mellitus; Z13.220 Encounter for screening for lipoid disorders; Z13.29 Encounter for screening for other suspected endocrine disorder
CPT/HCPCS: 36415; 80053; 80061; 83036; 84443; 85025

== ENCOUNTER → 2022-12-23 | Outpatient (CLI) | payer OTHER, MEDICAID, SELFPAY ==
[2022-12-23 10:13] LABS: Absolute Neutrophil Count 3.8 X10^3/uL (2.0-7.7); Basophil# 0.03 X10^3/uL; Basophil% 0.5 % (0-1); Eosinophil# 0.19 X10^3/uL; Eosinophils% 3.1 % (0-5); Hematocrit 32.3 % (37-47); Hemoglobin 9.5 g/dL (12.0-15.0); Lymphocyte % 27.5 % (19-41); Mean Corp Hgb Conc 29.4 g/dL (32-36); Mean Corpuscular Hgb 18.8 pg (27.0-32.0); Mean Platelet Vol. 9.7 fl (6.2-12.0); Monocyte# 0.43 X10^3/uL; NRBC Flagged by Analyzer 0 % (0-5); Neutrophil # 3.82 X10^3/uL (2.7-7.7); Neutrophil % 61.7 % (47-70); Platelet Count 340 K/mm3 (150-450); RBC Distribution Width CV 19.3 % (11.6-14.6); RBC Distribution Width SD 42.9 fl (35.1-43.9); Red Blood Count 5.05 M/mm3 (4.2-5.4); White Blood Count 6.2 K/mm3 (4.4-11.0)
[2022-12-23 10:54] LABS: Iron Binding Capacity,Total 507 ug/dL (250-450)
[2022-12-23 10:59] LABS: Vitamin B12 477 pg/mL (211-911)
== END | disposition home or self-care (01) ==
LOC: MFPLAB 08:15
PROVIDERS: PCP Family Medicine; Visit Provider Family Medicine
DX: D64.9 Anemia, unspecified (principal)
CPT/HCPCS: 36415; 82607; 82746; 83550; 85025

== ENCOUNTER → 2023-01-17 | Outpatient (CLI) | payer OTHER, MEDICAID, SELFPAY ==
[2023-01-17 18:15] LABS: Platelet Count 347 K/mm3 (150-450); Reticulocyte Count 1.48 % (0.5-1.5)
[2023-01-17 18:47] LABS: Ferritin 4 ng/mL (8-252)
== END | disposition home or self-care (01) ==
LOC: MFPLAB 14:13
PROVIDERS: PCP Family Medicine; Visit Provider Family Medicine
DX: D64.9 Anemia, unspecified (principal)
CPT/HCPCS: 36415; 82728; 85045

== ENCOUNTER → 2023-02-16 | Outpatient (CLI) | payer OTHER, MEDICAID, SELFPAY ==
--- NOTE | 2023-02-16 15:29 | US_ITS ---
INDICATION: heavy menses EXAMINATION: Ultrasound US Pelvis Non OB Complete With Transvaginal Imaging TECHNIQUE: Transabdominal and transvaginal pelvic ultrasound was performed. Grayscale, spectral waveform, and color flow Doppler evaluation of the adnexa. COMPARISON: FINDINGS: UTERUS: Anteverted. The uterus measures 10.3 x 7.1 x 5.5 cm. There is no uterine mass. The endometrial stripe is thickened measuring 14 mm with irregular nodularity. There is endometrial fluid. Nabothian cysts are noted. RIGHT OVARY: 3.1 x 2.0 x 1.8 cm. Non-enlarged, normal echogenicity. There is normal arterial inflow and venous outflow present in the right ovary. LEFT OVARY: 2.9 x 2.7 x 1.5 cm. Non-enlarged, normal echogenicity. There is a 2 cm homogeneous nodular lesion. FREE FLUID: None. The urinary bladder has a volume of 296 cc. US/Pelvic w/ Transvaginal IMPRESSION: Thickened endometrium with nodular irregularity requiring further evaluation. Endometrial fluid. Nabothian cysts. Left ovarian heterogeneous nodular lesion. Electronically Signed: Cipriano Chavarria DO at 16:52 EDT ,
== END | disposition home or self-care (01) ==
LOC: US 15:29
PROVIDERS: PCP Family Medicine; Referring Provider Obstetrics & Gynecology; Visit Provider Obstetrics & Gynecology
DX: N92.0 Excessive and frequent menstruation with regular cycle (principal)
CPT/HCPCS: 76830; 76856

== ENCOUNTER → 2023-03-14 | Outpatient (CLI) | payer OTHER, MEDICAID, SELFPAY ==
--- NOTE | 2023-03-14 14:20 | EMB_PTH ---
PATIENT: MOUSTAPHA GARCIAS LOC: UNIQUE U#:[id number] AGE/SX: 37/F ROOM: RE03/14/[address]: Dr. Ida De La Rosa MD : 1985 BED: DIS: 03/14/2023 SPEC #: [id number] RECD: 03/14/23 16:23 STATUS: MÓNICA NOEL #: [id number] MASSIEL: 03/14/23 14:[address]: Ida De La Rosa DEPT: SURGICAL PATHOLOGY RECD BY: Linda Oliver ENTERED: 03/15/23 07:12 SP TYPE: ENDOM BX/C DOREEN DR: Ying Palma DO Tissues: Endometrium, NOS Procedures: Surgery Specimen Level IV HEADER OPERATION: Endometrial biopsy PRE-OP DIAGNOSIS: Abnormal uterine bleeding TISSUE SUBMITTED: Endometrial lining MICROSCOPIC DIAGNOSIS Endometrium, biopsy: Secretory endometrium. AM:evelio 03/16/2023 MICROSCOPIC DESCRIPTION Slides are reviewed. GROSS DESCRIPTION Received is one container labeled with the patient's name and not further designated. The specimen consists of multiple irregular and elongated fragments of wong tissue that in aggregate measure 2.5 x 1.0 x 0.1 cm. The specimen is totally submitted in one cassette. / AM:evelio 03/15/2023 TC:5 CPT: 26534
== END | disposition home or self-care (01) ==
PROVIDERS: PCP Family Medicine; Referring Provider Obstetrics & Gynecology; Visit Provider Obstetrics & Gynecology
DX: N93.9 Abnormal uterine and vaginal bleeding, unspecified (principal)
CPT/HCPCS: 88305

== ENCOUNTER → 2023-04-28 | Outpatient (CLI) | payer OTHER, MEDICAID, SELFPAY ==
[2023-04-28 15:43] LABS: Absolute Lymphocyte Count 1.88 X10^3/uL (0.83-4.51); Absolute Neutrophil Count 4.2 X10^3/uL (2.0-7.7); Basophil# 0.04 X10^3/uL; Basophil% 0.6 % (0-1); Eosinophil# 0.39 X10^3/uL; Eosinophils% 5.4 % (0-5); Hematocrit 34.1 % (37-47); Hemoglobin 10.4 g/dL (12.0-15.0); Lymphocyte # 1.88 X10^3/ul (0.83-4.51); Mean Corp Hgb Conc 30.5 g/dL (32-36); Mean Corpuscular Hgb 21.5 pg (27.0-32.0); Mean Corpuscular Volume 70.6 fL (81-99); Mean Platelet Vol. 9.1 fl (6.2-12.0); Monocyte# 0.68 X10^3/uL; Monocyte% 9.4 % (0-10); NRBC Flagged by Analyzer 0 % (0-5); Neutrophil # 4.21 X10^3/uL (2.7-7.7); Neutrophil % 58.3 % (47-70); Platelet Count 267 K/mm3 (150-450); RBC Distribution Width CV 18.3 % (11.6-14.6); RBC Distribution Width SD 45.7 fl (35.1-43.9); Red Blood Count 4.83 M/mm3 (4.2-5.4); White Blood Count 7.2 K/mm3 (4.4-11.0)
== END | disposition home or self-care (01) ==
PROVIDERS: PCP Family Medicine; Referring Provider Obstetrics & Gynecology; Visit Provider Obstetrics & Gynecology
DX: N93.9 Abnormal uterine and vaginal bleeding, unspecified (principal)
CPT/HCPCS: 36415; 85025